=== PATIENT | male | born 1975 | race Caucasian/White ===

== ENCOUNTER 2017-09-04 12:01 | Emergency (ER) | payer OTHER ==
[~2017-09-04 12:01] MED LIST: GABAPENTIN 300 MG CAP PO SCH; predniSONE 20 MG TAB PO SCH
[2017-09-04] MEDS ORDERED: KETOROLAC 15 MG/1 ML SDV IVP ONE (13:02)
[2017-09-04] MEDS ORDERED: DEXAMETHASONE 10 MG/ML VIAL IVP ONE (13:02)
--- NOTE | 2017-09-04 13:02 | EDPHY ---
General - History Smoking Status: Former smoker Time Seen by Provider: 09/04/17 12:51 Narrative: CHIEF COMPLAINT: Low back pain HISTORY OF PRESENT ILLNESS: Patient presents by EMS with complaints of low back pain. He says that over this morning he was "lifting and twisting," when he felt a sudden onset of pain. This is in the low back, primarily on the right side. It radiates down the right leg. He attributed to his neuropathy and previous back pain. He has no numbness or tingling of the genitals or saddle. No weakness of the leg, but he says this pain is so severe that he is unable to ambulate. No thoracic pain. No cervical pain. No direct or blunt trauma. No incontinence of bowel or bladder. No other associated complaints or modifying factors. REVIEW OF SYSTEMS: Ten systems reviewed and are negative unless otherwise noted in the HPI PCP: None SPECIALISTS: None currently PAST MEDICAL HISTORY: Anxiety, PTSD, schizophrenia, bipolar, PTSD, emphysema, neuropathy, testicular cancer PAST SURGICAL HISTORY: Orchidectomy, vasectomy SOCIAL HISTORY: Daily smoker. Denies alcohol use. Occasional marijuana use. Denies any illicit substance use. Recently relocated from [place]. Currently homeless FAMILY HISTORY: Noncontributory EXAMINATION General Appearance: Alert, no distress. Well-developed well-nourished. Unkempt Head: normocephalic, atraumatic Eyes: Pupils equal and round, no conjunctival pallor or injection Neck: Normal inspection, supple, non-tender. No crepitus or deformity. Respiratory: Mild rhonchi. No wheezing or crackles. No diminishment or distress. No consolidation Cardiovascular: Regular rate and rhythm no murmur Back: Normal inspection. There is no midline tenderness of the thoracic spine. There is mild midline tenderness of lumbar spine and on the right paraspinous musculature. Neurological: GCS 15. A&O, nonfocal. Patellar reflexes symmetric. Strength is 5/5 in both ankles and great toes. Sensory symmetric in lower extremities. Skin: Warm and dry, no rash. No petechiae or purpura Extremities: Nontender, no pedal edema. Symmetric range of motion of the upper extremities Psychiatric: Mood and affect normal DIFFERENTIAL DIAGNOSES: Including but not limited to disc bulge, disc herniation, strain, sprain, fracture, acute cord compression, MDM: 1:05 p.m. Acute low back injury with right-sided pain and right-sided radiculopathy. No saddle anesthesia. No incontinence. He seems to be neuro intact distally but will not bear any weight. I have ordered x-ray, IV steroid, muscle relaxant and pain medication. He is in no acute distress. Vital signs stable. 1:15 p.m. Notified by RN, patient is declining the Percocet medication as he has a previous narcotic addiction. I have canceled disorder. 2:30 p.m. Patient re-evaluated. X-ray does show some spondylolisthesis. At this time he is feeling well. He has minimal pain. He has minimal radicular pain down the right leg. I did offer further imaging this including MRI, but he has declined. He would like to be discharged home he is ambulatory without difficulty. I do not feel there is any evidence of acute cord compression or cauda equina at this time. Feel he is stable for discharge with follow [facility] and [facility]surgery as needed. We discussed ED precautions for return of pain, numbness, tingling, weakness, incontinence of bowel or bladder. He is comfortable this plan and discharged home with steroid and Neurontin provided by medication assistance program. SUPERVISION: This patient was independently evaluated without direct involvement of or examination by the attending physician. (Yung Miller) Discussion: The patient was evaluated and managed by the Physician Corn Husker. I discussed the patient's presentation and course with the physician physical therapy assistant instructor and agree with the evaluation. My co-signature indicates that I have reviewed this chart and I agree with the findings and plan of care as documented. I am the secondary supervising physician. (Edith Avalos) - Objective Vital Signs: Initial Vital Signs Temperature (C) 36.8 C 09/04/17 12:04 Heart Rate 46 L 09/04/17 12:04 Respiratory Rate 16 09/04/17 12:04 Blood Pressure 131/80 H 09/04/17 12:04 O2 Sat (%) 97 09/04/17 12:04 O2 Delivery Mode Room Air Allergies/Adverse Reactions: aspirin Allergy (Verified 09/04/17 12:11) diphenhydramine [From Benadryl] Allergy (Verified 09/04/17 12:11) Home Medications: Medication Instructions Recorded Gabapentin [Neurontin 300 MG (*)] 300 mg PO HS #12 cap 09/04/17 predniSONE [Deltasone] 60 mg PO DAILY #12 tablet 09/04/17 Medications Given: Discontinued Medications Dexamethasone (Decadron Injection) 10 mg IVP EDNOW ONE Stop: 09/04/17 13:03 Last Admin: 09/04/17 13:17 Dose: 10 mg Ketorolac Tromethamine (Toradol) 15 mg IVP EDNOW ONE Stop: 09/04/17 13:03 Last Admin: 09/04/17 13:16 Dose: 15 mg Oxycodone/Acetaminophen (Percocet 5/325) 2 tab PO EDNOW ONE Stop: 09/04/17 13:04 Last Admin: 09/04/17 13:17 Dose: Not Given Departure - Departure Disposition: Home, Routine, Self-Care Clinical Impression: Spondylolisthesis at L4-L5 level, Acute low back pain Condition: Good Instructions: Low Back Strain (ED), Spondylolisthesis (ED) Additional Instructions: 1. Contact [facility] for outpatient care and to discuss neurosurgery referral 2. Prednisone prescription as provided from the medication assistance program, 60 mg daily 3. Neurontin 300 mg every night as prescribed 4. Return here for any worsening pain, numbness, tingling, weakness, incontinence of bowel or bladder, retention of bowel or bladder Referrals: NONE *PRIMARY CARE P,. [Primary Care Provider] - As per Instructions [facility],. [Clinic] - As per Instructions Prescriptions: Gabapentin [Neurontin 300 MG (*)] 300 mg PO HS #12 cap predniSONE [Deltasone] 60 mg PO DAILY #12 tablet
[2017-09-04] MEDS ORDERED: OXYCODONE/APAP 5/325 TAB PO ONE (13:03)
[2017-09-04 15:16] VITALS: BP 131/84
--- NOTE | 2017-09-04 15:23 | ASMTCMCOM ---
CM Note CM Note Notes: CM asked to MAP medication for patient-Gabapentin and Prednisone. Chart reviewed. This is patient's first visit to this ER. He has recently relocated to [place] from [place] and has been staying in a camp in [place]. He tells me that he is working to transfer his Medicaid and disability to [place]. He is aware of the coordinated entry program but is unsure wher it is. I have provided him with this information as well as other homeless resources. Patient admits to a history of narcotic abuse and has declined Percocet when offered to him for his back pain. I encouraged patient to follow up with the [facility] to establish his Medicaid and a PCP Date Signed: 09/04/2017 03:22 PM Electronically Signed By:Sil Bravo RN
== END 2017-09-04 15:18 | disposition home or self-care (01) ==
DX: M43.16 Spondylolisthesis, lumbar region (principal); Z85.47 Personal history of malignant neoplasm of testis; Z87.891 Personal history of nicotine dependence
CPT/HCPCS: 72100; 96374; 96375; 99284; J1100; J1885; J7512

== ENCOUNTER 2018-03-14 21:57 | Emergency (ER) | payer OTHER ==
--- NOTE | 2018-03-14 22:29 | EDPHY ---
H & P Stated Complaint: worsening cough, SOB, painful cough Time Seen by Provider: 03/14/18 22:17 HPI/ROS: Chief Complaint: Cough HPI: 42-year-old male presenting with persist cough the last 3 months. Cough is productive of a yellowish sputum. Does have some pain in his home when his cough. He is not short of breath. No fevers or chills. He was seen at [facility] and told he needs a chest x-ray. Has not had x-ray done. He is a smoker. He also smokes marijuana daily and continues to drink alcohol. He is currently homeless. He is mildly disheveled but acting appropriately and mentating appropriately. ROS: 10 systems were reviewed and were negative except those elements noted in the HPI. PMH: Schizoaffective disorder, noncompliant with medications. Currently homeless Social History: Positive smoking, positive alcohol, positive marijuana Family History: non-contributory Physical Exam: Gen: Awake, Alert, No Distress HEENT: Nose: no rhinorrhea Eyes: PERRLA, EOMI Mouth: Moist mucosa Neck: Supple, no JVD Chest: nontender, lungs clear to auscultation Heart: S1, S2 normal, no murmur Abd: Soft, non-tender, no guarding Back: no CVA tenderness, no midline tenderness Ext: no edema, non-tender Skin: no rash Neuro: CN II-XII intact, Sensation grossly intact, Strength 5/5 in bilateral upper and lower extremities - Personal History Current Tetanus/Diphtheria Vaccine: Yes Current Tetanus Diphtheria and Acellular Pertussis (TDAP): Yes - Medical/Surgical History Hx Asthma: Yes Hx Chronic Respiratory Disease: Yes Hx Diabetes: No Hx Cardiac Disease: No Hx Renal Disease: No Hx Alcoholism: Yes Other PMH: LBP, testicular CA, emphysema, neuropathy - Social History Smoking Status: Heavy smoker Constitutional: Initial Vital Signs Heart Rate 96 03/14/18 22:02 Respiratory Rate 20 03/14/18 22:02 Blood Pressure 126/84 H 03/14/18 22:02 O2 Sat (%) 98 03/14/18 22:02 O2 Delivery Mode Room Air Allergies/Adverse Reactions: aspirin Allergy (Verified 03/14/18 22:01) diphenhydramine [From Benadryl] Allergy (Verified 03/14/18 22:01) Home Medications: Medication Instructions Recorded NK [No Known Home Meds] 03/14/18 Medical Decision Making - Diagnostics Imaging Results: Imaging Impressions Chest X-Ray 03/14/18 22:25 Impression: 1. Mild bronchitis. 2. No focal pneumonia. ED Course/Re-evaluation: Chest x-ray is noted for mild bronchitis with no focal pneumonia. Patient has been reassured. He is satting 96 on room air. Will discharge with follow-up with primary care. Will send him home with an albuterol inhaler for symptomatic control. Departure - Departure Disposition: Home, Routine, Self-Care Clinical Impression: Bronchitis Condition: Good Instructions: Chronic Bronchitis (ED), Albuterol (By breathing) Additional Instructions: You mean use the albuterol inhaler 2 puffs every 4 hr as needed for cough or wheeze. Follow up at [facility] in 3-4 days for further evaluation. Referrals: NONE *PRIMARY CARE P,. [Primary Care Provider] - As per Instructions [facility],. [Clinic] - As per Instructions
[2018-03-14] MEDS ORDERED: ALBUTEROL INH PREPACK MDI TAKEHOME ONE (23:14)
[2018-03-14 23:54] VITALS: BP 120/74
== END 2018-03-14 23:54 | disposition home or self-care (01) ==
DX: J40 Bronchitis, not specified as acute or chronic (principal); Z59.0 Homelessness

== ENCOUNTER 2018-04-23 23:57 | Emergency (ER) | payer OTHER ==
[2018-04-24 00:03] VITALS: BP 133/84
--- NOTE | 2018-04-24 00:17 | EDPHY ---
H & P Time Seen by Provider: 04/24/18 00:05 HPI/ROS: Chief Complaint: Right shoulder pain HPI: A 42-year-old male with a history of chronic pain in his right shoulder for the past several months. Patient states he fell off his skateboard yesterday and landed on his right shoulder. Is complaining of pain in the anterior portion of his proximal humerus. He has been able to move his arm. No numbness or weakness. Did not hit his head. No loss of consciousness. No neck pain. No headache. No chest pain. No shortness of breath. ROS: 10 systems were reviewed and were negative except those elements noted in the HPI. PMH: Right shoulder injury, COPD Social History: No smoking, no alcohol, no recreational drug use Family History: non-contributory Physical Exam: Gen: Awake, Alert, No Distress HEENT: Nose: no rhinorrhea Eyes: PERRLA, EOMI Mouth: Moist mucosa Neck: Supple, no JVD Chest: nontender, lungs clear to auscultation Heart: S1, S2 normal, no murmur Abd: Soft, non-tender, no guarding Back: no CVA tenderness, no midline tenderness Ext: no edema, patient has complained tenderness along his right anterior proximal humerus. There is no deformity. He is able to internally and externally rotate and abduct to 45. No clavicle deformity or tenderness. No AC joint tenderness Skin: no rash Neuro: CN II-XII intact, Sensation grossly intact, Strength 5/5 in bilateral upper and lower extremities - Personal History Current Tetanus/Diphtheria Vaccine: Yes Current Tetanus Diphtheria and Acellular Pertussis (TDAP): Yes Tetanus Vaccine Date: 2015 - Medical/Surgical History Hx Asthma: Yes Hx Chronic Respiratory Disease: Yes Hx Diabetes: No Hx Cardiac Disease: No Hx Renal Disease: No Hx Alcoholism: Yes Other PMH: LBP, testicular CA, emphysema, neuropathy - Social History Smoking Status: Heavy smoker Constitutional: Initial Vital Signs Temperature (C) 36.4 C 04/24/18 00:00 Heart Rate 72 04/24/18 00:00 Respiratory Rate 16 04/24/18 00:00 Blood Pressure 133/84 H 04/24/18 00:00 O2 Sat (%) 98 04/24/18 00:00 O2 Delivery Mode Room Air Allergies/Adverse Reactions: aspirin Allergy (Verified 04/24/18 00:22) diphenhydramine [From Benadryl] Allergy (Verified 04/24/18 00:22) Home Medications: Medication Instructions Recorded NK [No Known Home Meds] 03/14/18 Medical Decision Making - Diagnostics Imaging Results: Right shoulder x-ray is negative per my interpretation. Imaging: I viewed and interpreted images myself ED Course/Re-evaluation: 42-year-old with right shoulder pain. X-rays negative. He is moving shoulder and is neurovascularly intact. Will give him acetaminophen as he is allergic to salicylates and discharge with referral to [facility] as an outpatient. Departure - Departure Disposition: Home, Routine, Self-Care Clinical Impression: Shoulder pain Condition: Good Instructions: Shoulder Pain (ED) Additional Instructions: Take acetaminophen, 1000 mg every 8 hr. Follow up at [facility] in 3-4 days if symptoms are not improving. Referrals: [facility],. [Clinic] - As per Instructions
[2018-04-24] MEDS ORDERED: ACETAMINOPHEN 500 MG TAB PO ONE (00:24)
== END 2018-04-24 00:51 | disposition home or self-care (01) ==
LOC: EDUNIT#
DX: M25.511 Pain in right shoulder (principal); V00.131A Fall from skateboard, initial encounter; Y93.51 Activity, roller skating (inline) and skateboarding; Y92.480 Sidewalk as the place of occurrence of the external cause

== ENCOUNTER 2018-05-02 14:56 | Emergency (ER) | payer OTHER ==
[2018-05-02] MEDS ORDERED: PIPERACILLIN/TAZO 4.5 GM/DEX 100 ML IV ONE (15:20)
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
[2018-05-02] MEDS ORDERED: AMOXICILLIN/CLAVULANATE POT 875/125 MG TAB PO ONE ×2 (15:49→15:54)
[2018-05-02 16:04] VITALS: BP 124/69
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
== END 2018-05-02 15:58 | disposition left against medical advice (07) ==
LOC: UNDOADMOB 15:29
DX: S61.451A Open bite of right hand, initial encounter (principal); W50.3XXA Accidental bite by another person, initial encounter; Z59.0 Homelessness
CPT/HCPCS: J2543